=== PATIENT | male | born 1955 | race African-American/Black ===

== ENCOUNTER → 2016-10-19 | Outpatient (CLI) | payer BC, OTHER ==
[2014-07-15 14:10] VITALS: BP 115/72
[~2016-10-19] MED LIST: ACYC200C PO; ACYC800T PO; ALBU2.5V14 NEB; ALFU10TA PO; ASPI325T8 PO; CALC500T54 PO; CALC625T PO; CHOL500045 PO; CYCL1DRO EACHEYE; ESOM40CA25 PO; FLUT16SP2 NS; FLUT1DIS5 IH; GUAI600T47 PO; IBAN150T PO; KETO5DRO3 EACHEYE; LORA10CA PO; MAGN400C PO; MECL25TA3 PO; MELO15TA6 PO; METH54TA5 PO; MONT10TA9 PO; NYST15CR TP; OLAN1CAP PO; OLAN5TAB3 PO; OLME40TA12 PO; OMEG500C PO; PRED10TA PO; RANI150T6 PO; SILD100T PO; ZINC10LO4 PO; [UNRECOGNIZED DRUG - OTHER]; [UNRECOGNIZED DRUG - OTHER] PO
[2016-10-19 13:07] LABS: BASO # 0.1 x10^3/uL (0.0-0.2); BASO % 1 % (0-3); EOS % 2 % (0-3); HEMATOCRIT 42.7 % (39.0-53.0); HEMOGLOBIN 14.6 g/dL (13.0-17.5); LYMPH # 2.3 x10^3/uL (1.0-4.8); LYMPH % 31 % (24-48); MEAN CORPUSCULAR HEMOGLOBIN 29 pg (25-35); MEAN CORPUSCULAR HGB CONC 34 g/dL (31-37); MEAN CORPUSCULAR VOLUME 84 fL (79-100); MONO % 9 % (0-9); NEUT % 57 % (31-73); PLATELET COUNT 288 x10^3/uL (140-400); RED BLOOD COUNT 5.09 x10^6/uL (4.30-5.70); RED CELL DISTRIBUTION WIDTH 15.2 % (11.5-14.5); WHITE BLOOD COUNT 7.2 x10^3/uL (4.0-11.0)
[2016-10-19 13:15] LABS: PROTHROMBIN TIME PATIENT 12.6 SEC (11.7-14.0)
[2016-10-19 13:16] LABS: ALBUMIN 3.7 g/dL (3.4-5.0); CALCIUM 9.3 mg/dL (8.5-10.1); CREATININE 1.4 mg/dL (0.7-1.3); GFR 62.8; POTASSIUM 4.6 mmol/L (3.5-5.1); TOTAL BILIRUBIN 0.5 mg/dL (0.2-1.0); TOTAL PROTEIN 7.3 g/dL (6.4-8.2)
== END | disposition home or self-care (01) ==
LOC: LAB 12:30
PROVIDERS: ATTEND Psychiatry & Neurology Neurology
DX: G93.2 Benign intracranial hypertension (principal)
CPT/HCPCS: 36415; 80053; 84443; 85027; 85610

== ENCOUNTER → 2018-04-14 | Day surgery (SDC) | payer BC, OTHER ==
[~2018-04-14] MED LIST changes: +IV RINGERS,LACTATED 1000ML 1,000 ML IV SCH; -KETO5DRO3 EACHEYE; +KETO5DRO4 EACHEYE; +LIDOCAINE 1% PF 2 ML VIAL. ID PRN; +ONDANSETRON PF 4 MG/2 ML VIAL. IV PRN; +PROCHLORPERAZINE 10 MG/2 ML VIAL. IV PRN; +PROPOFOL 40 ML IV ONE; +RANI150T21 PO; -RANI150T6 PO; +fentaNYL PF VIAL 100 MCG/2 ML VIAL IV PRN
[2018-04-14 07:38] VITALS: BP 122/79
--- NOTE | 2018-04-17 18:08 | PATHOLOGY ---
[facility] Accession Number: [id number] . 01 Material submitted: . PART A: DESCENDING COLON POLYP PART B: HEPATIC FLEXURE POLYP . 01 Clinical history: . Screening, Hx polyps . 02 Diagnosis: A. Colon biopsy, descending colon polyp: - Tubular adenoma. . B. Colon biopsy, hepatic flexure polyp: - Tubular adenoma. - Hyperplastic mucosal-associated lymphoid aggregate. QTP/04/17/2018 . 02 Comment: There is no high-grade dysplasia or evidence of malignancy. (JPM:[facility] 04/17/2018) . 02 Electronically signed: . Mahad Hoskins MD, Pathologist NPI- [id number] . 01 Gross description: . A. Received in formalin labeled "Brown, Guero, descending colon polyp," is a single segment of huerta soft tissue measuring 0.5 cm in maximum dimension. The specimen is entirely submitted in cassette A1. . B. Received in formalin labeled "Brown, Guero, hepatic flexure polyp," is a single segment of huerta soft tissue measuring 0.5 cm in maximum dimension. The specimen is entirely submitted in cassette B1. (TSD; 04/14/2018) TOB/TOB . 02 Pathologist provided ICD-10: D12.4, D12.3 . 02 CPT . 390202, 120930 Specimen Comment: A courtesy copy of this report has been sent to Specimen Comment: [phone], . Specimen Comment: Report sent to / DR OLIVA Performed at: [address], [place], [place] [id number] MD Royer Tavarez MD Phone: [phone] Performed at: 02 [facility] [address] [place], [place] [id number] MD Mahad Hoskins MD Phone: [phone]
== END | disposition home or self-care (01) ==
LOC: SURG 06:04
PROVIDERS: ATTEND Internal Medicine Gastroenterology
DX: Z12.11 Encounter for screening for malignant neoplasm of colon (principal); D12.4 Benign neoplasm of descending colon; D12.3 Benign neoplasm of transverse colon; K64.0 First degree hemorrhoids; I10 Essential (primary) hypertension; J45.909 Unspecified asthma, uncomplicated; F32.9 Major depressive disorder, single episode, unspecified; K21.9 Gastro-esophageal reflux disease without esophagitis; E78.00 Pure hypercholesterolemia, unspecified; Z86.73 Personal history of transient ischemic attack (TIA), and cerebral infarction without residual deficits; Z86.010 Personal history of colon polyps; Z88.2 Allergy status to sulfonamides; Z88.6 Allergy status to analgesic agent; G47.30 Sleep apnea, unspecified; M15.8 Other polyosteoarthritis; Z83.71 Family history of colonic polyps; Z82.49 Family history of ischemic heart disease and other diseases of the circulatory system; Z87.891 Personal history of nicotine dependence; Z72.89 Other problems related to lifestyle; Z79.899 Other long term (current) drug therapy; Z95.0 Presence of cardiac pacemaker; Z98.890 Other specified postprocedural states
CPT/HCPCS: 45380; 45385; 88305; J2704